=== PATIENT | female | born 2000 | race Caucasian/White ===

== ENCOUNTER → 2020-08-20 | Outpatient (REF) | payer OTHER | LOC: M LAB REF 15:52 | PROVIDERS: ATTEND Physician Assistant | DX: J02.9 Acute pharyngitis, unspecified (principal) ==

== ENCOUNTER 2022-12-23 07:17 | Observation (INO) | payer OTHER ==
[~2022-12-23] VITALS: Ht 160 cm; Wt 72.6 kg
[~2022-12-23 07:17] MED LIST: BUSP10TA PO; LR 1,000 ML IV SCH; RIZA10TA58 PO; SPIR100T3 PO; TRI-TAB16 PO
[2022-12-23] MEDS ORDERED: HEPARIN SOD (PORCINE) 5000UNITS/ML 1ML VIAL/SYRINGE SQ ONE (08:40)
[2022-12-23] MEDS ORDERED: ONDANSETRON 4MG 2ML VIAL As Ordered ONE (08:46)
[2022-12-23] MEDS ORDERED: propofoL 200 MG/20 ML VIAL As Ordered ONE (08:46)
[2022-12-23] MEDS ORDERED: fentaNYL 250 MCG/5 ML INJECTION As Ordered ONE (08:46)
[2022-12-23] MEDS ORDERED: MIDAZOLAM INJ 2MG/2ML VIAL As Ordered ONE (08:46)
[2022-12-23] MEDS ORDERED: LIDOCAINE 2% 100MG/5ML SDV (FOR ANES.) As Ordered ONE (08:46)
[2022-12-23] MEDS ORDERED: ROCURONIUM BROMIDE 50MG/5ML VIAL As Ordered ONE ×2 (08:46→11:01)
[2022-12-23] MEDS ORDERED: MEPERIDINE 50 MG/ML 1ML VIAL As Ordered ONE (09:19)
[2022-12-23] MEDS ORDERED: GENTAMICIN SULF 80MG/2ML VIAL As Ordered ONE (09:28)
[2022-12-23] MEDS ORDERED: CLINDAMYCIN 900 MG in IV 1 EA IV ONE ×2 (09:40→16:00)
[2022-12-23] MEDS ORDERED: SUGAMMADEX SODIUM 500 MG/5 ML VIAL (BRIDION) As Ordered ONE (10:35)
[2022-12-23] MEDS ORDERED: ACETAMINOPHEN 1000MG 100ML IV BAG As Ordered ONE (10:35)
[2022-12-23] MEDS ORDERED: HYDROmorphone HCL 2MG/ML 1ML VIAL As Ordered ONE (10:35)
[2022-12-23] MEDS ORDERED: PHENYLephrine 500MCG 5ML (100MCG/ML) SYRINGE As Ordered ONE (10:42)
[2022-12-23] MEDS ORDERED: ePHEDrine SULFATE 25 MG/5 ML(5MG/ML) SYRINGE As Ordered ONE (11:15)
[2022-12-23] MEDS ORDERED: ONDANSETRON 4MG 2ML VIAL IV PRN ×2 (13:50→13:55)
[2022-12-23] MEDS ORDERED: PERCOCET 5MG/325MG TAB PO PRN (13:50)
[2022-12-23] MEDS ORDERED: fentaNYL 100 MCG/2 ML INJECTION IV PRN (13:55)
[2022-12-23] MEDS ORDERED: HYDROMORPHONE HCL 0.5 MG/ 0.5 ML SYRINGE IV PRN (13:55)
[2022-12-23] MEDS ORDERED: LR 1,000 ML IV SCH (13:55)
[2022-12-23] MEDS: oxyCODONE 5MG TAB PO PRN ×2 (14:09→14:40)
[2022-12-23 15:15] VITALS: BP 123/81; TEMP 96.8; O2SAT 100
[2022-12-23 15:45] VITALS: BP 121/76; TEMP 97; O2SAT 99
[2022-12-23 16:15] VITALS: BP 119/72; TEMP 97.3; O2SAT 99
[2022-12-23] MEDS: LR 1,000 ML IV SCH (16:52)
[2022-12-23] MEDS: ACETAMINOPHEN TAB 650MG DOSE (2X325MG) PO PRN (16:52)
[2022-12-23] MEDS ORDERED: IBUP200T46 PO (16:54)
[2022-12-23] MEDS ORDERED: HOME MED LIST COMPLETE! XX SCH (16:55)
[2022-12-23 17:16] VITALS: BP 111/69; TEMP 97.3; O2SAT 98
[2022-12-23 19:15] VITALS: BP 110/67; TEMP 97.7; O2SAT 97
[2022-12-23] MEDS: traMADol 50 MG TAB PO PRN (20:48)
[2022-12-23 21:01] VITALS: BP 104/59; TEMP 97.3; O2SAT 98
[2022-12-24 02:00] VITALS: BP 101/62; TEMP 97.3; O2SAT 99
[2022-12-24] MEDS: ACETAMINOPHEN TAB 650MG DOSE (2X325MG) PO PRN (02:11)
[2022-12-24] MEDS: LR 1,000 ML IV SCH (03:13)
[2022-12-24 06:00] VITALS: BP 110/62; TEMP 97; O2SAT 100
[2022-12-24] MEDS: traMADol 50 MG TAB PO PRN (07:26)
[2022-12-24] MEDS ORDERED: TRAM50TA2 PO (10:13)
== END 2022-12-24 11:20 | disposition home or self-care (01) ==
LOC: M SDC 07:17 → M MS5PR 07:18
PROVIDERS: ADMIT Plastic Surgery Surgery of the Hand; ATTEND Plastic Surgery Surgery of the Hand
DX: N62 Hypertrophy of breast (principal); F41.9 Anxiety disorder, unspecified; G43.909 Migraine, unspecified, not intractable, without status migrainosus; Z79.899 Other long term (current) drug therapy; Z88.0 Allergy status to penicillin
CPT/HCPCS: 19318; 81025; 88305; 96361; 96365; 96366; C9290; J0131; J0665; J0737; J1100; J1170; J1580; J2175; J2250; J2371; J2405; J3010